=== PATIENT | male | born 1980 | race Caucasian/White ===

== ENCOUNTER 2016-11-05 19:28 | Emergency (ER) | payer OTHER ==
[~2016-11-05] VITALS: Ht 180.3 cm; Wt 67.1 kg
[2016-11-05 19:34] VITALS: BP 132/78
[2016-11-05] MEDS ORDERED: METH4TAB2 PO (20:10)
[2016-11-05] MEDS ORDERED: NAPR500T8 PO (20:10)
--- NOTE | 2016-11-05 20:10 | PHYS DOC ---
Past Medical History Past Medical History: No Pertinent History Past Surgical History: Appendectomy Alcohol Use: None Drug Use: None Adult General Chief Complaint Chief Complaint: KNEE INJURY HPI HPI Patient is a 35 year old male who presents with mild left anterior knee pain with swelling that began 3 days ago. Patient denies any injury. Patient states the pain is worse on flexion and extension of the knee. Review of Systems Review of Systems Constitutional: Denies fever or chills [] Musculoskeletal: Left knee pain Integument: Denies rash or skin lesions [] Neurologic: Denies headache, focal weakness or sensory changes [] Allergies Allergies Allergies Coded Allergies Type Severity Reaction Last Updated Verified No Known Drug Allergies 11/05/16 No Physical Exam Physical Exam Constitutional: Well developed, well nourished, no acute distress, non-toxic appearance. [] Skin: Warm, dry, no erythema, no rash. [] Back: No tenderness, no CVA tenderness. [] Extremities: Left knee with no obvious deformity. No obvious edema or ecchymosis. Tenderness on palpation of the distal patella. Patient able to flex and extend the left knee with no difficulty. Negative Rl sign and negative Brittany's sign. +2 left pedal pulse. Cap refill less than 2 seconds the left lower extremity. Sensation intact to the left lower extremity. Neurologic: Alert and oriented X 3, normal motor function, normal sensory function, no focal deficits noted. [] Psychologic: Affect normal, judgement normal, mood normal. [] Current Patient Data Vital Signs Vital Signs Date Time Temp Pulse Resp B/P (MAP) Pulse Ox O2 Delivery O2 Flow Rate FiO2 11/05/16 19:34 98.2 98 18 97 Room Air 98.2 EKG EKG [] Radiology/Procedures Radiology/Procedures [] Course & Med Decision Making Course & Med Decision Making Pertinent Labs and Imaging studies reviewed. (See chart for details) Patient is in the ED with left knee pain that began 3 days ago as well as swelling. No known injury. Left knee x-rays [address] Giordano are negative for any acute findings. Cam wrap applied to the left knee by copier technician, neurovascular exam done by me is normal. Ice elevation encouraged. Discharged with naproxen and Medrol Dosepak. Follow-up with orthopedic doctor in one week. Dragon Disclaimer Dragon Disclaimer This electronic medical record was generated, in whole or in part, using a voice recognition dictation system. Departure Departure Impression: Primary Impression: Left knee pain Disposition: HOME, SELF-CARE Condition: STABLE Referrals: TYRONE YOUNGER MD follow up in one week Patient Instructions: Knee Pain, [id number] Additional Instructions: You were seen for left knee pain and swelling. Ice and elevate the extremity. Take the prescribed medicines as ordered. Follow-up with the orthopedic doctor provided in 1-2 weeks. Scripts Naproxen (NAPROXEN) 500 Mg Tablet.dr 1 TAB PO BID, #30 TAB 0 Refills Prov: DENNY DOZIER APRN 11/05/16 Methylprednisolone (MEDROL) 4 Mg Tab.ds.pk 1 PKG PO UD, #1 PKG Prov: DENNY DOZIER APRN 11/05/16 Problem Qualifiers Primary Impression: Left knee pain Chronicity: acute Qualified Codes: M25.562 - Pain in left knee JENNIDENNY ECKERT COLLIN Nov 05, 2016 20:10
--- NOTE | 2016-11-06 09:46 | RAD ---
4 view left knee radiographs 02/14/2017 Clinical history: Left knee pain for 2 days. AP, oblique, lateral and sunrise digital radiographs of the left knee were obtained. No fracture or dislocation of the left knee is seen. No significant degenerative changes are noted. Impression: Negative study.
== END 2016-11-05 20:15 | disposition home or self-care (01) ==
LOC: ER 19:28
DX: M25.562 Pain in left knee (principal); R22.42 Localized swelling, mass and lump, left lower limb
CPT/HCPCS: 73564; 99284

== ENCOUNTER 2017-06-16 22:16 | Emergency (ER) | payer OTHER ==
[2017-06-16] MEDS: KETOROLAC 60 MG/2 ML INJ. IM (23:11)
== END 2017-06-16 23:59 | disposition home or self-care (01) ==
LOC: ER 22:16
DX: M54.6 Pain in thoracic spine (principal); Z90.49 Acquired absence of other specified parts of digestive tract
CPT/HCPCS: 96372; 99283; J1885